=== PATIENT | female | born 1955 | race Caucasian/White ===

== ENCOUNTER 2017-02-25 07:08 | Day surgery (SDC) | payer OTHER ==
[~2017-02-25] VITALS: Ht 182.9 cm; Wt 77.6 kg
[~2017-02-25 07:08] MED LIST: ASPI-973 PO; DOCO1CAP3 PO; ESTR1PAT82 TRANSDERM; FLUT9.9S NS; MULT-1018 PO; MV,I66.7 PO; TRAZ-115 PO
[2017-02-25] MEDS ORDERED: fentaNYL-PF 50 mCg/mL 2 mL Inj ONE (07:09)
[2017-02-25] MEDS ORDERED: Dexamethasone 4 mg/mL Inj ONE (07:09)
[2017-02-25] MEDS ORDERED: Ondansetron 2 mg/mL 2 mL Inj ONE (07:09)
[2017-02-25] MEDS ORDERED: Propofol 10,000 mCg/mL 20 mL Inj ONE (07:09)
[2017-02-25] MEDS: Lactated Ringer's 1,000 ML IV SCH ×2 (07:22→09:24)
[2017-02-25 07:32] VITALS: BP 134/75; PULSE 67; RESP 16; O2SAT 96
[2017-02-25] MEDS ORDERED: Lactated Ringer's 500 ML IV PRN (09:22)
[2017-02-25] MEDS ORDERED: Lactated Ringer's 1,000 ML IV SCH (09:22)
--- NOTE | 2017-02-25 09:22 | PCM.HPANE ---
Patient Data Date of Service: Feb 25, 2017 Surgeon Admitting Provider: Attending Provider:Rizwan George DO Primary Care Physician:Rigoberto Atkinson MD Other Provider:Berenice Fitzgerald Anesthesia Reason for Visit Right Thumb Soft Tissue Mass Ht/WT & BMI Height (Feet): 6 Height (Inches): 0 Weight (Kilograms): 77.6 Body Mass Index 23.00 Allergies Coded Allergies: Penicillins (Verified Adverse Reaction, Unknown, rash as a child, 09/12/09 ) Past Anesthesia History Anesthesia History: Denies:: Abnormal Airway, Anesthesia Reactions, Difficult Intubation, Fam Anesthesia Reaction, Malignant Hyperthermia Diabetes History Hx Diabetes?: No MRSA MRSA: No Medications Hypertension Medication: No Home Meds Incl Beta [place]: No Reported Medications Aspirin 81 Mg [id number] Mg PO DAILY Ref 0 02/21/17 Mv,Iron,Min/Folic Acid/Biotin (Hair, Skin & Nails Softgel)66.7 Mcg Qspmqoc16.7 Mcg PO DAILY 02/21/17 Docosahexanoic Acid/Epa (Fish Oil Concentrate Softgel)1 Each Capsule1 Each PO DAILY 02/21/17 Multivitamin (Multi Vitamin Daily)1 Each Tablet1 Each PO DAILY 30 Days Ref 0 02/21/17 Trazodone 50 Mg Olohlv95 Mg PO HS PRN Insomnia Ref 0 02/21/17 Fluticasone Propionate (Flonase Allergy Relief)50 Mcg/Actuation [place].susp9.9 Ml NS PRN For Congestion 02/21/17 Estradiol 0.1 mg/24 hr Patch 1 Each Patch.tdwk1 Patch TRANSDERM WEEKLY Ref 0 02/21/17 History HEENT History: Denies:: Abnormal Airway Cataracts (forming not yet surgically treated ) Difficult Intubation Dysphagia Glaucoma Hearing Problem Sinus Problem TMJ Cardiovascular History: Denies:: AICD Abdominal Aortic Aneurism Atrial Fibrillation Cardiac Surgery Chest Pain Congestive Heart Failure Coronary Artery Disease Edema Heart Murmur Hypertension Irregular Heartbeat Pacemaker Peripheral Vascular Rheumatic Fever Thrombophlebitis Respiratory History: Denies:: Asthma COPD Emphysema Oxygen Administration Pneumonia Tuberculosis Use of C-PAP Machine Use of Inhalers / NEBS Neurological History: Denies:: CVA Dementia Dizziness Headaches Multiple Sclerosis Parkinson's Disease Seizures TIA Hx of GI Problems?: No Gastrointestinal History: Denies:: Cirrhosis Gall Bladder Disease Gastroesphageal Reflux Gastrointestinal Bleeding Heartburn Hepatitis Hiatal Hernia Liver Disease Hx of Problems?: No Genitourinary History: Denies:: Kidney Stones Urinary Tract Infection (bladder infections post hot tubs- hx of dec 2016, not current) Female Hx: Denies:: Currently Problems with Breasts? Skin History: Denies:: History Skin Disorders? Pressure Ulcers Hx Musculoskeletal Problems?: Yes Musculoskeletal History: Positive for:: Back Injury (sees chiropractor for back occasional) Musculoskeletal Trauma (right thumb mass current admission) Denies:: Fibromyalgia Joint Replacement Myasthenia Gravis Osteoarthritis Rheumatoid Arthritis Systemic Lupus Hx of Psycho/Social Problems?: No Psycho Social History: Denies:: Anxiety Hx Depression Hx Surgeries?: Yes (hyst, c section) Hx Any Other Health Problems?: Yes Other History: Denies:: Cancer Thyroid Disease History Blood Transfusions: Positive for:: Accept Blood Products? Denies:: Blood Transfusions Hx Diabetes: No Hx Alcohol Use: YesAlcoholic Drinks Per Day: one drink dailyHx Substance Use: NoHave You Smoked inLast 12 mo: No Stop/Bang S-Snoring: Do You Snore Loudly: No T-Tired: feel tired, fatigued: No O-Obsered: Observed not breath: No P-Blood Pressure: treated: No B- Body Mass Index > 35 kg/m2: No A- Age over 50: Yes N- Neck Large Circumference: No G- Gender Male: No DARION Total Score: 1 DAROIN Risk Assessment: Low Risk, <3 Yes Risk Assessment Category Category 1A: Patient has history of documented sleep apnea, and HAS NOT received any narcotic, sedative or anesthesia administration during this stay. Category 1B: Patient has history of documented sleep apnea, and HAS received any narcotic , sedative or anesthesia administration during this stay Category 2: Patient has SUSPECTED Obstructive Sleep Apnea, and HAS received any narcotic , sedative or anesthesia administration during this stay. Category 3: Patient has SUSPECTED Obstructive Sleep Apnea and HAS NOT received narcotic, sedative or anesthesia administration during this stay. Category 4: Outpatient in Procedural Areas with known sleep apnea or who screen positive for High Risk via the STOP/BANG questionnaire. Exam Exam Vital Signs Vital Signs Date Time Temp Pulse Resp B/P Pulse Ox O2 Delivery O2 Flow Rate FiO2 02/25/17 07:32 36.0 67 16 134/75 96 Room Air General Appearance: Alert, Oriented X3, Cooperative, No Acute Distress HEENT/AIRWAY: MP 2 Lungs: Normal Air Movement Heart: Exam Unremarkable Meds/Labs/Diagnostics Admission Meds Current Medications Lactated Ringer's (Lr) 1,000 ml @ 120 mls/hr Q8H20M IV Last administered on t 07:22; Start 02/25/17 at 05:00; Stop 02/25/17 at 13:19 Plan Impression Patient chart reviewed, patient interviewed and anesthestic plan with risks, benefits, and alternatives discussed, and informed consent obtained. NPO Status: 02/24/17 ASA Physical Status: ASA2 Mod Systemic Disease Anesthetic Plan: MAC Bene/Risks/Altern/Consents: Yes HP Complete Prior to Induction: Yes Reece Veloz MD Feb 25, 2017 08:24
[2017-02-25] MEDS ORDERED: MetoCLOpramide 5 mg/mL 2 mL Inj IVPUSH PRN (09:25)
[2017-02-25] MEDS ORDERED: Phenylephrine 10,000 mCg/mL Inj IVPUSH PRN (09:25)
[2017-02-25] MEDS ORDERED: Dexamethasone 4 mg/mL Inj IVPUSH PRN (09:25)
[2017-02-25] MEDS ORDERED: HYDROcodone-APAP 5-325 mg Tablet PO PRN (09:25)
[2017-02-25] MEDS ORDERED: Atropine 0.4 mg/mL Inj IVPUSH PRN (09:25)
[2017-02-25] MEDS ORDERED: fentaNYL-PF 50 mCg/mL 2 mL Inj IVPUSH PRN (09:25)
[2017-02-25] MEDS ORDERED: EPHEDrine Sulfate 50 mg/mL Inj IVPUSH PRN (09:25)
[2017-02-25] MEDS ORDERED: HYDROmorphone 1 mg/mL Inj IVPUSH PRN (09:25)
[2017-02-25] MEDS ORDERED: Ondansetron 2 mg/mL 2 mL Inj IVPUSH PRN (09:25)
[2017-02-25] MEDS ORDERED: Labetalol 5 mg/mL 4 mL Inj IV PRN (09:25)
[2017-02-25] MEDS ORDERED: Lidocaine 1%-Epi 1:100,000 20 mL Inj INFILTRATE ONE (09:35)
[2017-02-25 09:48] VITALS: BP 122/67; PULSE 70; RESP 15; O2SAT 95
[2017-02-25 09:55] VITALS: BP 122/70; PULSE 69; RESP 16; O2SAT 94
[2017-02-25 10:00] VITALS: BP 117/70; PULSE 67; RESP 13; O2SAT 94
[2017-02-25 10:05] VITALS: BP 117/61; PULSE 66; RESP 16; O2SAT 94
[2017-02-25 10:12] VITALS: BP 122/56; PULSE 67; RESP 16; O2SAT 96
--- NOTE | 2017-02-25 10:18 | PCM.ANEP2 ---
Post Anesthesia Evaluation ASA/CMS Post Anesthesia Date of Service: Feb 25, 2017 VS in Patient's Normal Range?: Yes Resp Stable; Airway Patent?: Yes CV Function & Hydration Stable: Yes Mental Status Recovered?: Yes Pain control Satisfactory?: Yes N/V Control Satisfactory?: Yes Reece Veloz MD Feb 25, 2017 10:18
--- NOTE | 2017-02-25 10:18 | PCM.ANEP1 ---
Post Anesthesia Phase 1 PACU Phase 1 Assessment Date of Service: Feb 25, 2017 Vital Signs Vital Signs Date Time Temp Pulse Resp B/P Pulse Ox O2 Delivery O2 Flow Rate FiO2 02/25/17 10:12 67 16 122/56 96 Room Air 02/25/17 10:05 66 16 117/61 94 Room Air 02/25/17 10:00 67 13 117/70 94 Room Air 02/25/17 09:55 69 16 122/70 94 Room Air 02/25/17 09:48 36.6 70 15 122/67 95 Room Air 02/25/17 07:32 36.0 67 16 134/75 96 Room Air Anesthetic Administered: MAC Level of Alertness: Awake, talking MURPHY's with Equal Strength: Yes Pain: No Nausea or Vomiting: No Oxygen Delivery: Room Air Lungs: Normal Air Movement Reece Veloz MD Feb 25, 2017 10:18
--- NOTE | 2017-02-25 19:40 | OP ---
[address] [address] OPERATIVE REPORT PATIENT: CARLOS COHEN : 1955 MR#: [id number] ADMIT: 02/25/2017 JOB ID: [id number] DATE OF SURGERY: 02/25/2017 PREOPERATIVE DIAGNOSIS(ES): Right thumb foreign body granuloma. POSTOPERATIVE DIAGNOSIS(ES): Right thumb foreign body granuloma. PROCEDURE: Excision, right thumb foreign body granuloma measuring 5 mm in diameter. SURGEON: Rizwan George D.O. ANESTHESIA: Monitored anesthesia care. Local. HISTORY: The patient is a pleasant 61-year-old female that sustained a laceration while cleaning some glassware several years prior. She continued to have pain along the outer margin of her thumb pulp with discomfort any time she performed any pinching or grasping-type activities. She is unsure of all of the glass was removed from the thumb at the time of her injury. I discussed with the patient the option to proceed with an exploration with excision of a foreign body granuloma and possible underlying glass fragment. She understood the risks include, but are not limited to, neurovascular injury, tendon injury, infection, failure to resolve the patient's preoperative symptoms, recurrence of the mass, stiffness, all of which may require further intervention. Patient had all questions answered. Consent was signed and placed in the chart. PROCEDURE IN DETAIL: The patient was brought to the operative suite and placed supine on the operating table. Surgical time-out performed and everyone in the room was in agreement. After appropriate anesthesia was obtained, the patient's right upper extremity was then prepped and draped in a sterile fashion. The thumb was manually exsanguinated and a 1/4-inch [place] drain utilized as a tourniquet. An incision was made directly overlying the soft tissue mass. Dissection was carried down to the mass. This represented a foreign body granuloma. There was a small fragment of glass within the granuloma. The entire granuloma measured approximately 5 mm in diameter. This was freed up from the surrounding soft tissues and excised fully. Copious irrigation was then performed. Approximately a 1 x 5 mm section of the skin and subcutaneous tissue was removed that was thickened and callus to allow for primary closure without any significant redundant skin. Closure was easily performed utilizing 5-0 nylon in simple interrupted fashion. The patient was then placed in a bulky soft dressing. ESTIMATED BLOOD LOSS: Less than 1 cc. COMPLICATIONS: None. DISPOSITION: The patient tolerated the procedure well. Anesthesia was reversed. The patient was transferred back to recovery. SPECIMENS: Right thumb foreign body granuloma measuring less than 5 mm with a small fragment of glass. This was disposed of. POSTOPERATIVE PLAN: The patient will follow up in my office in two weeks. We will remove the patient's sutures at that time and have her start working on range of motion and scar mobilization.
== END 2017-02-25 23:59 | disposition home or self-care (01) ==
LOC: SAS 07:08
PROVIDERS: ATTEND Orthopaedic Surgery
DX: M60.241 Foreign body granuloma of soft tissue, not elsewhere classified, right hand (principal); I73.00 Raynaud's syndrome without gangrene; M72.0 Palmar fascial fibromatosis [Dupuytren]; M54.5 Low back pain; G25.81 Restless legs syndrome; M47.22 Other spondylosis with radiculopathy, cervical region; Z90.710 Acquired absence of both cervix and uterus; Z79.890 Hormone replacement therapy; Z87.891 Personal history of nicotine dependence; Z79.82 Long term (current) use of aspirin; Z18.89 Other specified retained foreign body fragments